=== PATIENT | male | born 1965 | race Caucasian/White ===

== ENCOUNTER 2019-03-01 08:02 | Outpatient (CLI) | payer OTHER ==
--- NOTE | 2019-03-01 10:18 | ULT ---
ULTRASOUND ABDOMEN LIMITED: (RIGHT UPPER QUADRANT) DATE: 03/01/19 HISTORY: 54-year-old male with elevated LFTs. FINDINGS: The gallbladder has normal wall thickness and has no evidence of gallstones or sludge. The hepatic e chogenicity is normal. The right kidney is not in the right upper kidney. The pancreas is visualize d, although ultrasound is relatively insensitive for pancreatic pathology compared to CT and MRI. Th ere is no biliary dilation. The common duct caliber is 5 mm. IMPRESSION: 1. 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 2. Otherwise normal. jn [] POS: OFF
== END 2019-03-01 08:03 | disposition home or self-care (01) ==
LOC: BICULT 08:02
PROVIDERS: ATTEND Physician Assistant
DX: R31.9 Hematuria, unspecified (principal)
CPT/HCPCS: 76705